=== PATIENT | female | born 1955 | race Caucasian/White ===

== ENCOUNTER 2020-07-22 09:50 | Emergency (ER) | payer MEDICARE, BC ==
[~2020-07-22] VITALS: Ht 167.6 cm; Wt 100.0 kg
[~2020-07-22 09:50] MED LIST: PRILOSEC20 MG/CAP PO; ROBITUSSIN AC10 ML PO; SIMVASTATIN40 MG PO; ZPAK PO
[2020-07-22] MEDS ORDERED: ASPIRIN 8181 MG PO (10:34)
[2020-07-22 10:37] LABS: HEMATOCRIT 44.3 % (37.0-47.0); HEMOGLOBIN 14.4 g/dl (12.0-16.0); IMMATURE GRANULOCYTES 0.7 % (0.0-5.0); MEAN CELL VOLUME 91.2 fL CALC (80.0-100.0); MEAN CORPUSCULAR HGB 29.6 pG CALC (26.0-32.0); MEAN CORPUSCULAR HGB CONC 32.5 g/dL CAL (32.0-36.0); NEUT# 2.73 thou/uL (2.00-7.15); RED BLOOD COUNT 4.86 mill/uL (4.20-5.60); RED CELL DISTRI WIDTH 13.5 % (11.5-15.5)
[2020-07-22 10:59] LABS: ANION GAP 12 (6-22 (CALC)); BUN 11 mg/dL (8-23); BUN/CREATININE RATIO 15 (12-20 (CALC)); CARBON DIOXIDE 27 mmol/l (22-30); CHLORIDE 99 mmol/l (95-108); CREATININE 0.7 mg/dL (0.5-1.0); GFR > 60 ML/MIN (>=60 (CALC)); GFR FOR AFR.AMER. > 60 ML/MIN (>=60 (CALC)); POTASSIUM 3.6 mmol/l (3.5-5.1); SODIUM 135 mmol/l (137-146)
[2020-07-22] MEDS ORDERED: ONDANSETRON4 MG PO (12:33)
[2020-07-22 12:35] VITALS: BP 148/80
== END 2020-07-22 12:35 | disposition home or self-care (01) ==
LOC: ED 09:50
PROVIDERS: Family Medicine
DX: U07.1 COVID-19 (principal)